=== PATIENT | female | born 1990 | race Caucasian/White ===

== ENCOUNTER 2024-05-04 08:31 | Emergency (ER) | payer OTHER ==
[~2024-05-04] VITALS: Ht 157.5 cm; Wt 64.9 kg
[2024-05-04] MEDS ORDERED: HYDROCODON-ACE1 EA10 PO (08:46)
[2024-05-04] MEDS ORDERED: SODIUM CHLORIDE 0.9% 1,000 ML IV PRN (09:00)
[2024-05-04] MEDS ORDERED: KETOROLAC TROMETHAMINE 15 MG/ML VIAL IV ONE (09:00)
[2024-05-04 09:05] LABS: BASOPHILS 0.6 % (0-2); EOSINOPHILS 5.4 % (0-6); HEMATOCRIT 38.3 % (35.0-50.0); MONOCYTES 9.5 % (0-12); NEUTROPHILS 53.5 % (39-80); PLATELET COUNT 230 K/uL (140-440); RBC 4.08 M/ul (4.3-5.7); RDW 13.2 (10.5-15.0)
[2024-05-04 11:12] VITALS: BP 104/76
== END 2024-05-04 11:13 | disposition home or self-care (01) ==
LOC: ED 08:31
PROVIDERS: Emergency Medicine
DX: N92.0 Excessive and frequent menstruation with regular cycle (principal); F17.200 Nicotine dependence, unspecified, uncomplicated; Z79.891 Long term (current) use of opiate analgesic
CPT/HCPCS: 36415; 85025; 96374; 99284-25; J1885; J7030